=== PATIENT | male | born 1950 | race Caucasian/White ===

== ENCOUNTER 2016-04-29 06:43 | Day surgery (SDC) | payer MEDICARE ==
[~2016-04-29] VITALS: Ht 172.7 cm; Wt 73.0 kg
--- NOTE | ~2016-04-29 | HP ---
PATIENT: GAURAV VELARDE MEDICAL RECORD: [id number] ACCOUNT: [id number] LOCATION:[facility] : 52 ADMISSION DATE: 04/29/16 HISTORY AND PHYSICAL EXAMINATION CHIEF COMPLAINT: Complex polyps. HISTORY OF PRESENT ILLNESS: The patient is referred by Dr. Villanueva. The patient's primary care physician is Dr. Eileen Desir. The patient underwent a colonoscopy on 12/26/2015. In the cecum, there was a 4 x 3 cm polyp which was cold biopsied and was referred to [place] for removal utilizing the argon plasma junior high math teacher. At 60 cm, there was a 1-cm polyp, which was removed with the hot biopsy forceps polypectomy technique. At 35 cm, there was a 4-cm polyp with a very thick stalk which was removed with the snare. There was a central artery, which was coagulated. The patient also had a large anal polyp within the anal opening and is referred to have this excised as well. So, the patient is here for colonoscopy with polypectomies and the argon plasma junior high math teacher as well as excision of the anal lesion. I personally reviewed the pathology report. The polyp at 35 cm had a stalk, was a tubulovillous adenoma with low-grade atypia/dysplasia. The cecal polyp was an adenomatous polyp. I personally reviewed the endoscopic photographs. The patient has undergone a prior colonoscopy on 12/27/2015. TRANSINT:[id number] Voice Confirmation ID: [id number] DOCUMENT ID: [id number] KURTIS MENENDEZ MD CC: EILEEN DESIR DO and VENKATA VILLANUEVA MD [id number] DICTATION DATE: 04/29/16 1052 HEARING STENOGRAPHER: 04/29/16 1116 [facility] 04/29/16 [facility] [address] [place] [address]
[~2016-04-29 06:43] MED LIST: ALBUTEROL0.63 MG/3 INH; AMOXICILLIN500 M1 PO; ATIVAN1 MG PO; BREO ELLIPTA 11 EACH INH; COLACE100 MG PO; HYDROCODONE-APA1 TAB PO; IPRAT-ALBUT 0.5-3 ML UPD; LEVAQUIN PREMI750 MG PO; LEVAQUIN750 MG PO; STERAPRED DS 1010 MG PO; VENTOLIN HFA18 GM INH; XANAX1 MG PO; ZESTRIL20 MG PO; ZOLOFT100 MG PO
[2016-04-29 07:39] LABS: HEMATOCRIT 51.1 % (42.0-54.0); HEMOGLOBIN 17.1 g/dL (13.5-17.5); MCH 30.5 pg (26.0-34.0); MCHC 33.5 g/dL (31.0-37.0); MCV 91.3 fL (80.0-100.0); RBC 5.6 10x6/uL (4.20-6.10); RDW 13.3 % (11.5-14.5); WBC 6.8 10x3/uL (4.8-10.8)
[2016-04-29 08:21] VITALS: BP 117/71; Ht 172.7 cm; Wt 73.0 kg
--- NOTE | 2016-04-29 09:06 | NUR ---
3313 DR. MARIELOS BROCK.
--- NOTE | 2016-04-29 11:30 | NUR ---
COLONOSCOPY NO PREP, NO COUNTS R/T COLONOSCOPY. PREP AND COUNT FOR ANAL LESION REMOVAL
--- NOTE | 2016-04-29 11:32 | NUR ---
DR. MENENDEZ WAS DELAYED DUE TO EMERGENCY ROOM CONSULT, RESULTS IN OR AD ON
--- NOTE | 2016-04-29 14:13 | NUR ---
1414--PT VOIDS WITHOUT DIFFICUTLY, IV EVA'Jes. RONALD RN
--- NOTE | 2016-04-29 14:45 | NUR ---
1444--DISCHARGE INSTRUCTIONS GIVEN, PT VERBALIZES UNDERSTANDING. PT OFF UNIT VIA CHAPO. RONALD SMIHT
--- NOTE | 2016-05-08 09:40 | HP ---
PATIENT: GAURAV VELARDE MEDICAL RECORD: [id number] ACCOUNT: [id number] LOCATION:[facility] : 52 ADMISSION DATE: 04/29/16 HISTORY AND PHYSICAL EXAMINATION CHIEF COMPLAINT: Colon polyps. HISTORY OF PRESENT ILLNESS: The patient is referred with complex colon polyps as well as an anal lesion. The patient underwent colonoscopy on 12/26/2015 and was found to have in the cecum a 4 x 3 cm polyp which was cold biopsied and was referred for definitive therapy utilizing the argon plasma gis developer. Other polyps were identified. At 35 cm, a very large 4 cm polyp with a very thick stalk was removed with the snare. There was a central artery, which was coagulated. Other smaller polyps were noted. In the anus, there was an anal polyp, which was photographed. It is going to require surgical resection. I personally reviewed the endoscopic photographs. I personally reviewed the endoscopic report. I personally reviewed the pathology report. The polyp with the long stalk at 35 cm was a tubulovillous adenoma with focal low-grade atypia/dysplasia. The patient is here to undergo colonoscopy with polypectomy utilizing the argon plasma gis developer. ALLERGIES: No known drug allergies. HOME MEDICATIONS: Xanax, lisinopril, Ativan, albuterol. SOCIAL HISTORY: The patient is a smoker, uses oxygen at night, has between a 100 and 900-qtal-[id number] history. PAST MEDICAL AND SURGICAL HISTORY: COPD, hypertension, arthritis as well as a hemorrhoid operation. REVIEW OF SYSTEMS: Negative for CVA or seizures. Negative for diabetes or thyroid problems. Negative for renal disease or hepatitis. PHYSICAL EXAMINATION: GENERAL: The patient does not appear acutely ill. He does appear chronically ill. VITAL SIGNS: Reviewed. HEENT: Head: External ears appear normal. Eyes: Extraocular movements are intact. NECK: Trachea is midline. CHEST: No intercostal retractions. PULMONARY: Nonlabored, no stridor. There are rhonchi bilaterally. ABDOMEN: Nontender. IMPRESSION: 1. Cecal polyp, which is going to require definitive therapy utilizing the argon plasma gis developer. 2. Previously removed polyp on a stalk at 35 cm that had low-grade atypia. 3. Anal lesion/mass. PLAN: Colonoscopy with the argon plasma gis developer, transanal excision of an anal mass. HISTORY AND PHYSICAL [id number] GAURAV VELARDE TRANSINT:[id number] Voice Confirmation ID: [id number] DOCUMENT ID: [id number] KURTIS MENENDEZ MD at 0940 CC: EILEEN DESIR DO and VENKATA CLARKE MD [id number] DICTATION DATE: 04/29/16 1058 MECHANICAL PENCILS ASSEMBLER: 04/29/16 1129 [facility] 04/29/16 [place] [id number]
--- NOTE | 2016-05-08 09:40 | OP ---
PATIENT NAME: GAURAV VELARDE MEDICAL RECORD: [id number] :52 LOCATION:D.OPS ADMISSION DATE: SURGEON: KURTIS MENENDEZ MD DATE OF OPERATION: 04/29/2016 PREOPERATIVE DIAGNOSES: 1. Large cecal polyp. 2. Questionable anal mass. POSTOPERATIVE DIAGNOSES: 1. Carpeting cecal polyp. 2. Three other sessile polyps measuring between 9 mm and 1.2 cm. 3. Mature posterior lying anal fissure with enlargement of the hemorrhoid tissue on either side of a fissure, giving the appearance of an anal mass. PROCEDURES: 1. Total colonoscopy to cecum. 2. Hot biopsy forceps polypectomy times 3. 3. Polypectomy utilizing the argon plasma frozen food department manager, which was a radiofrequency type of ablation of a benign colonic process and an endoscopic tattooing of the cecal polypectomy site. 4. Anal evaluation under anesthesia. ANESTHESIA: General. COMPLICATIONS: None. SURGEON: Kurtis Menendez MD The risks, possible complications and alternatives to procedure were explained to the patient. He elects to proceed. OPERATIVE COURSE: The patient was conveyed to the operating room electively on 04/29/2016. General anesthesia was induced by anesthesia staff. The patient was placed in the Basurto position. A digital rectal examination was performed. A colonoscope was inserted through the anus. It was easily advanced to the cecum. Cecal polyp was identified. There was a secondary smaller polyp, which was removed utilizing a hot biopsy forceps polypectomy technique. The larger carpeting polyp was periappendiceal. It was thoroughly biopsied utilizing the cold endoscopic biopsy forceps. I then ablated the remaining portions of the polyp utilizing the argon plasma frozen food department manager with the right colon setting in the forced mode. In order to aid in identification of the polyp, which is between some folds within the cecum, I elected for endoscopic take to the cecum. I advanced a sclerotherapy needle. I then tattooed the polypoid base with 3 cc of Aiyana ink. The sclerotherapy needle was removed. I slowly withdrew the endoscope. The pullback was greater than an 18-minute pullback. I dragged the folds. I irrigated and aspirated extensively. Three more polyps were removed. These were removed utilizing the hot biopsy forceps polypectomy technique. I withdrew into the rectum. A retroflexed view was obtained in the rectum. I then unretroflexed the scope and removed it under direct vision. The patient was then positioned in the lithotomy position. The buttocks were taped laterally. The anus and perianal areas were sterilely prepped and draped. I used U-shaped anal retractors to examine the anus and lower rectum. There OPERATIVE REPORT [id number] GAURAV VELARDE was a wide mature lying chronic anal fissure. Due to the chronicity of the fissure and the fact it is asymptomatic, I elected for no operative treatment for this. This large chronic anal fissure gave the appearance of a mass on either side of it as there was enlargement of the internal hemorrhoids. I think this likely what it was being seen endoscopically. I found nothing that warranted a biopsy. I unretroflexed the scope and removed it under direct vision. Due to the complexity cecal polyp in the cecum, I will plan for a colonoscopy with the argon plasma frozen food department manager in 1 year. I will see the patient in my office in 2-3 weeks. He is going to be at risk for a post-polypectomy syndrome and for that reason, I am going to dismiss him home on Flagyl. TRANSINT:[id number] Voice Confirmation ID: [id number] DOCUMENT ID: [id number] KURTIS MENENDEZ MD at 0940 CC: CARMELA FRIAS MD, EILEEN DESIR DO, KETCHER, BRENDA MD and [id number] DIGITAL MEDIA COORDINATOR DICTATION DATE: 04/29/16 1312 INSTALLATION SUPERVISOR: 04/29/16 2300 [facility] 04/29/16 [facility] [address] [place] [address]
== END 2016-04-29 14:40 | disposition home or self-care (01) ==
LOC: D.OPS 06:43 → D.PAN 10:25 → D.OPS 11:30 → D.PAN 11:30 → D.OPS 14:40
PROVIDERS: Anesthesiology
DX: D12.4 Benign neoplasm of descending colon (principal); D12.3 Benign neoplasm of transverse colon; D12.0 Benign neoplasm of cecum; K60.2 Anal fissure, unspecified; J44.9 Chronic obstructive pulmonary disease, unspecified; F17.210 Nicotine dependence, cigarettes, uncomplicated; Z99.81 Dependence on supplemental oxygen; M19.90 Unspecified osteoarthritis, unspecified site

== ENCOUNTER → 2016-05-05 08:54 | Outpatient (CLI) | payer MEDICARE ==
[2016-04-29 08:21] VITALS: BMI 24.5
== END | disposition home or self-care (01) ==
LOC: D.CT 08:54
DX: R91.8 Other nonspecific abnormal finding of lung field (principal)

== ENCOUNTER → 2016-05-28 09:37 | Outpatient (CLI) | payer MEDICARE ==
[2016-04-29 08:21] VITALS: BMI 24.5
== END | disposition home or self-care (01) ==
LOC: D.US 09:37
DX: E04.1 Nontoxic single thyroid nodule (principal)